=== PATIENT | female | born 1950 | race Caucasian/White ===

== ENCOUNTER 2017-03-29 16:44 | Emergency (ER) | payer SELFPAY ==
[~2017-03-29] VITALS: Ht 167.6 cm; Wt 51.8 kg
[2017-03-29 16:55] VITALS: BP 225/112; PULSE 69; RESP 18; O2SAT 93
--- NOTE | 2017-03-29 16:59 | ED.REPORT ---
HPI-Extremity Problem Upper Date of Service Mar 29, 2017 ED Provider: History of Present Illness: fall down on concrete steps left wrist pain and deformity. 04/13 etoh on board, 3 beers per her report. primary care is Dr. Jimenez. Right hand dominant. happened at home Nursing Notes Stated Complaint: LEFT WRIST PAIN Nursing Notes Reviewed: Yes Allergies: Coded Allergies: No Known Allergies (Unverified Allergy, Unknown, 03/29/17) General Time Seen by MD: 16:58 Chief Complaint Wrist injury left Hx Obtained From: Patient Onset Occurred: 1 - 4 hours ago Context of Onset: EtOH use ( also has ETOH on board) Symptom Duration: Since onset Caused by: Accidental Severity: Current: Pain level 10 out of 10 Past Medical History Past Medical History Denies: Asthma, Diabetes mellitus Past Surgical History right wrist fracture, ankle surgery Smoking History Former Smoker (quit 6 weeks ago) Social History Alcohol Use: 1-3 per day Drug Use: THC Other Social History: Occupation 2 steps into home, 1 story home 03/29/2017 Ambulatory Status Independent Review of Systems Basic Review of Systems Eyes: Vision NL, No discharge Respiratory: No shortness of breath, No cough, No wheeze Cardiovascular: No chest pain, No dyspnea on exertion, No orthopnea, No parox noct dyspnea, No palpitations Allergy / Immune: No allergy Physical Exam Initial Vital Signs Vital Signs (First) Date Time Temp Pulse Resp B/P Pulse Ox O2 Delivery O2 Flow Rate FiO2 03/29/17 16:55 36.4 69 18 225/112 93 Room Air Initial VS: Reviewed, Vital signs abnormal General/Constitutional: Well-developed, Well-nourished Head / Eyes: Atraumatic, Normocephalic, PERRL ENT: Mucous membranes moist, Conjunctiva normal, No scleral icterus Neck: Supple, Non-tender, Full range of motion Respiratory: Breath sounds normal, Clear to auscultation, No respiratory distress Cardiovascular: Regular rate & rhythm, Heart sounds normal, Intact distal pulses Abdomen / GI: Soft, Non-tender, No guarding, No rebound, No distention Back: No CVA tenderness Lymphatic: No lymphadenopathy Lower Extremities: Vascular intact, Neuro intact, No swelling, No tenderness Skin: Warm, Dry, No cyanosis Neurologic: Alert, Oriented, Nonfocal Psychiatric: Mood/affect normal, Behavior normal, Normal thought content General/Constitutional: Awake, Alert, No acute distress, Well appearing, Well developed, Well hydrated, Well nourished, Cooperative, Not toxic appearing Appearance / Presentation: Positive: Appears older than age, Intoxicated, Underweight Neck: Atraumatic, Supple, No meningismus Diminished Breath Sounds: Positive: Decreased bilateral Cardiovascular: Heart rate NL, Regular rhythm, Heart sounds NL patient aware her blood pressure is high. Is not reporting any symptoms. Was told after surgery 4 years ago she needed to be on blood pressure medication. visible deformity on left wrist, patient is moving the wrist without any pain behaviors. Interpretation & Diagnostics X-Ray Interpretation Xray Interpretation: PROCEDURE: X-RAY LEFT WRIST COMPLETE, MINIMUM THREE VIEWS ([id number]) INDICATIONS: fall , deformity TECHNIQUE: 4 views of the wrist were acquired. COMPARISON: None. FINDINGS: Bones: There is a moderately displaced fracture of the distal radial metaphysis, which demonstrates moderate posterior displacement and moderate posterior angulation. Scaphoid view: Negative Soft tissues: No suspicious soft tissue calcifications. IMPRESSION: Distal radial fracture. Dictated by: Jacinda Taveras M.D. on 03/29/2017 at 17:28 Approved by: Jacinda Taveras M.D. on 03/29/2017 at 17:28 PROCEDURE: X-RAY LEFT WRIST COMPLETE, MINIMUM THREE VIEWS ([id number]) INDICATIONS: post-reduction TECHNIQUE: 2 views of the wrist were acquired. COMPARISON: [facility], , XR WRIST 3VW LT, 03/29/2017, 17:18. FINDINGS: A cast is present, obscuring fine bony detail. Bones: There is decreased displacement and angulation involving the distal radial fracture. No suspicious bony lesions. Scaphoid view: Not requested Soft tissues: No suspicious soft tissue calcifications. IMPRESSION: Partial closed reduction of distal radial fracture. Dictated by: Jacinda Taveras M.D. on 03/29/2017 at 18:31 Approved by: Jacinda Taveras M.D. on 03/29/2017 at 18:31 Procedures Left Wrist Reduction: Pre-Procedure: Time - 1741 Performed by - ED physician, Dr. Cortes Consent: Informed consent provided. Consent from patient. Time-out performed. Hand hygiene observed. Procedure: No anesthesia use due to patient's severe intoxication. Post-procedure: Neurovascular - Intact pre-procedure, intact post-procedure. Reduced per examination. Splint applied. Condition improved, tolerated procedure well, and patient is stable. Splint Application - Fx Mgt Splint Application- Fx Mgt: Performed by Dr. Cortes Time: 17:50 Procedure Performed by: ED physician Precise Anatomic Location: Left distal radial wrist fracture Type of Immobilization: Ortho-glass Definitive Fracture Care: Splint Post-Procedure / Complications: Cap refill normal, Post splint vascular nl, Post splint neuro nl, Condition improved, Tolerated procedure well, Patient stable Re-Eval/Medical Decision Med Decision/Clinical Course 66 year old female presents for evualation of left wrist pain s/p fall at home. Patient with visible deformity. REduction is done by Dr. Oli Colindres. Patient reports feeling much better after reduction. Patient has elevated blood pressure. States she has had blood pressure issues for years. Does not take medication. States she does not like "doctor's offices". Because of her long smoking hx started her on hydralazine. Patient d/c with instruction to address her blood pressure and call for ortho follow up. Blood pressure is trending down after hydralazine. Discharge & Departure Impression: Primary Impression: Wrist fracture, left Encounter type: initial encounter Fracture type: closed Qualified Code: S62.102A - Fracture of unspecified carpal bone, left wrist, initial encounter for closed fracture Additional Impression: Hypertension, uncontrolled Disposition: Home Patient Instructions: Wrist Fracture in Adults (ED) Additional Instructions: The x-ray shows that you broke your wrist. The reduction of the wrist does show some improvement. You have been splinted which has also decreased your pain. You are being provided a prescription for pain medications. DO NOT MIX ALCOHOL AND the PAIN medications. You can end up ! I do not want that and neither does your . Keep the splint dry. You can purchase a cast protector at any drug store to keep the splint/cast dry. Please call Dr. Stanley's office tomorrow for an appointment later this week. There is a chance you may need surgery. That is something you can discuss with him. Your 's alcohol level has gone down enough to safely drive you home. If your is driving you to appointments, do not drink and drive. Take hydrocodone 1 up to 2 times a day as needed for severe unrelenting pain # 20 provided. Your blood pressure is high and has been high for some time. This is something that needs to be controlled. Start hydralazine 25 mg 3 times a day. PLEASE follow with primary care to address the blood pressure issue. I am sorry this has happened. Referrals: Aldo Jimenez MD (PCP) Clayton Stanley DO EDSupervising Provider for APC: Kirk Cortes MD Attending Statement Discussed patient with CAROL Reyes. I evaluated the patient independently and agree with plan as above. In brief 66-year-old female status post, fall with left distal radius fracture. I reduced this without any conscious sedation per patient request. It is improved post reduction though it is an unstable fracture and it will not stay completely aligned. Splinted. I discussed with orthopedics Dr. Salcido recommends discharge with splint follow-up this week for surgery scheduling next week. Return precautions given. and patient agree that they will follow up for the appointment. copies to: Aldo Jimenez MD; Clayton Stanley Sue ARNP Mar 29, 2017 16:59 Kim Leal Mar 29, 2017 18:09 Kirk Cortes MD Mar 29, 2017 18:49
[2017-03-29] MEDS ORDERED: HYDROcodone-APAP 5-325 mg Tablet PO ONE (17:10)
--- NOTE | 2017-03-29 17:31 | DRSVH ---
PROCEDURE: X-RAY LEFT WRIST COMPLETE, MINIMUM THREE VIEWS ([id number]) INDICATIONS: fall , deformity TECHNIQUE: 4 views of the wrist were acquired. COMPARISON: None. FINDINGS: Bones: There is a moderately displaced fracture of the distal radial metaphysis, which demonstrates m oderate posterior displacement and moderate posterior angulation. Scaphoid view: Negative Soft tissues: No suspicious soft tissue calcifications. IMPRESSION: Distal radial fracture. Dictated by: Jacinda Taveras M.D. on 03/29/2017 at 17:28 Approved by: Jacinda Taveras M.D. on 03/29/2017 at 17:28
[2017-03-29 18:19] VITALS: BP 222/97; PULSE 80; RESP 14; O2SAT 97
--- NOTE | 2017-03-29 18:33 | DRSVH ---
PROCEDURE: X-RAY LEFT WRIST COMPLETE, MINIMUM THREE VIEWS ([id number]) INDICATIONS: post-reduction TECHNIQUE: 2 views of the wrist were acquired. COMPARISON: [facility], CR, XR WRIST 3VW LT, 03/29/2017, 17:18. FINDINGS: A cast is present, obscuring fine bony detail. Bones: There is decreased displacement and angulation involving the distal radial fracture. No suspic ious bony lesions. Scaphoid view: Not requested Soft tissues: No suspicious soft tissue calcifications. IMPRESSION: Partial closed reduction of distal radial fracture. Dictated by: Jacinda Taveras M.D. on 03/29/2017 at 18:31 Approved by: Jacinda Taveras M.D. on 03/29/2017 at 18:31
[2017-03-29 20:01] VITALS: BP 182/99; PULSE 88; RESP 18; O2SAT 94
== END 2017-03-29 20:02 | disposition home or self-care (01) ==
LOC: SED 16:44
DX: S62.102A Fracture of unspecified carpal bone, left wrist, initial encounter for closed fracture (principal); I10 Essential (primary) hypertension; W18.39XA Other fall on same level, initial encounter; Y93.89 Activity, other specified; Y92.89 Other specified places as the place of occurrence of the external cause; Y99.8 Other external cause status; Z87.891 Personal history of nicotine dependence
CPT/HCPCS: 25605; 73110; 96372; 99284; J1885